=== PATIENT | female | born 1950 | race Caucasian/White ===

== ENCOUNTER 2017-04-03 12:18 | Inpatient (IN) | payer MEDICARE, BC ==
[~2017-04-03] VITALS: Ht 142.2 cm; Wt 110.0 kg
[~2017-04-03 12:18] MED LIST: ASPI-1265 PO; BUS15T PO; COU1T PO; DOCU50LI24 PO; DULR RC; FEBU40TA PO; FERR1TAB9 PO; IBUP-1984 PO; LACT1CAP57 PO; LEVO500P5 IV; MAG355OR18 PO; MAGN400O6 PO; META800T87 PO; MIDO2.5T14 PO; OMEP20CA4 PO; TRAM50TA2 PO; VANC1VIA21 IV; VITC500T PO; ZOC40T PO; [UNRECOGNIZED DRUG - CODE] IV
[2017-04-03 13:07] LABS: BASOPHILS % (AUTO) 0.3 % (0-1); EOSINOPHILS # (AUTO) 0.1 X10'3 (0-0.9); EOSINOPHILS % (AUTO) 0.9 % (0-6); HEMATOCRIT 42.3 % (35.0-45.0); HEMOGLOBIN 13.7 g/dl (12.0-16.0); LYMPHOCYTES # (AUTO) 1.8 X10'3 (1.1-4.8); LYMPHOCYTES % (AUTO) 21.8 % (21-51); MEAN CORPUSCULAR HEMOGLOBIN 26.6 PG (27.0-31.0); MEAN CORPUSCULAR HGB CONC 32.4 % (33.0-36.5); MEAN PLATELET VOLUME 9.9 FL (7.4-10.4); MONOCYTES # (AUTO) 0.6 X10'3 (0-0.9); NEUTROPHILS # (AUTO) 5.9 X10'3 (1.8-7.7); PLATELET COUNT 189 X10'3 (140-440); RED BLOOD COUNT 5.16 X10'6 (4.20-5.60); RED CELL DISTRIBUTION WIDTH 15.5 % (11.5-14.5); WHITE BLOOD COUNT 8.4 X10'3 (4.5-11.0)
[2017-04-03 13:16] LABS: INR 2.1 INR; PROTHROMBIN TIME 20.9 SECONDS (9.0-12.0)
[2017-04-03 13:23] LABS: ALANINE AMINOTRANSFERASE 16 U/L (12-78); ALBUMIN 3.5 G/DL (3.4-5.0); ALBUMIN/GLOBULIN RATIO 0.8 (1.1-1.5); ALKALINE PHOSPHATASE 83 IU/L (46-116); ANION GAP 8 (8-16); ASPARTATE AMINO TRANSFERASE 23 U/L (10-37); BILIRUBIN,TOTAL 0.6 MG/DL (0.1-1.0); BLOOD UREA NITROGEN 19 MG/DL (7-18); BUN/CREATININE RATIO 22.6 (6.6-38.0); CALCIUM 9.1 MG/DL (8.5-10.1); CHLORIDE 106 MMOL/L (99-107); CREATININE 0.84 MG/DL (0.40-0.90); GLUCOSE 106 MG/DL (70-104); POTASSIUM 3.8 MMOL/L (3.5-5.1); SODIUM 144 MMOL/L (135-145); TOTAL CARBON DIOXIDE 30.4 MMOL/L (24-32); TOTAL PROTEIN 7.9 G/DL (6.4-8.2); eGFR 68 ML/MIN
[2017-04-03 13:25] LABS: TROPONIN I < 0.04 NG/ML (0.0-0.05)
[2017-04-03] MEDS ORDERED: HYDROcodone/acetaminophen 5mg/325mg tablet PO ONE (13:35)
[2017-04-03 13:47] LABS: CLARITY,URINE Clear (Clear); COLOR,URINE Yellow (Yellow); GLUCOSE, URINE Negative (Neg); KETONES,URINE Negative (Neg); LEUKOCYTE ESTERASE ,URINE Negative (Neg); NITRITES, URINE Negative (Neg); OCCULT BLOOD,URINE Trace (Neg); PH,URINE 5.5 (4.8-8.0); PROTEIN,URINE 300 mg/dl (Neg)
[2017-04-03 13:55] LABS: UA COLLECTION TYPE STRAIGHT CATH
[2017-04-03 13:57] LABS: BACTERIA,URINE FEW /HPF (Neg); MUCUS STRANDS FEW /LPF (Neg); RBC,URINE NONE SEEN /HPF (0-2); SQUAMOUS EPITHELIAL CELL,UR FEW /LPF (FEW); WBC,URINE NONE SEEN /HPF (0-4)
[2017-04-03] MEDS ORDERED: mag hydrox/Alum hydrox/simeth 30ml oral suspension PO PRN ×2 (14:05→14:10)
[2017-04-03] MEDS ORDERED: docusate sodium 100mg/10ml UD cup PO PRN (14:05)
[2017-04-03] MEDS ORDERED: ibuprofen tablet 400 MG TABLET PO PRN (14:05)
[2017-04-03] MEDS ORDERED: cyclobenzaprine 10mg tablet PO PRN (14:05)
[2017-04-03] MEDS ORDERED: magnesium hydroxide 30ml (MOM) UD suspension PO PRN (14:05)
[2017-04-03] MEDS ORDERED: bisacodyl 10mg suppository rectal RC PRN ×2 (14:05→14:10)
[2017-04-03] MEDS ORDERED: potassium Cl 20 mEq SR tablet PO PRN ×2 (14:10)
[2017-04-03] MEDS ORDERED: acetaminophen 325mg tablet PO PRN ×2 (14:10)
[2017-04-03] MEDS ORDERED: magnesium 2GM in 50ml NS 50 ML IV PRN (14:10)
[2017-04-03] MEDS ORDERED: ondansetron/PF 4mg/2ml inj IV PRN (14:10)
[2017-04-03] MEDS ORDERED: magnesium Cl slow-release 64mg tablet PO PRN (14:10)
[2017-04-03] MEDS ORDERED: potassium Cl 40MEQ/NS 500ml 500 ML IV PRN ×2 (14:10)
[2017-04-03] MEDS ORDERED: magnesium 4gm in 100ml NS 100 ML IV PRN (14:10)
[2017-04-03 15:00] VITALS: BP 138/82
[2017-04-03] MEDS: midodrine 5mg tablet PO SCH ×3 (16:02→20:22)
[2017-04-03] MEDS ORDERED: METO-292 PO (17:05)
[2017-04-03] MEDS ORDERED: MAGN400C PO (17:05)
[2017-04-03] MEDS ORDERED: LEVO25TA2 PO (17:05)
[2017-04-03] MEDS ORDERED: LYR25C PO (17:05)
[2017-04-03] MEDS ORDERED: METO-539 PO (17:05)
[2017-04-03] MEDS ORDERED: CHOL400T14 PO (17:05)
[2017-04-03] MEDS ORDERED: HYDR12.5 PO (17:05)
[2017-04-03] MEDS ORDERED: AMLO2.5T2 PO (17:05)
[2017-04-03] MEDS: HYDROcodone/acetaminophen 10/325mg tab PO PRN ×2 (17:07→21:59)
[2017-04-03] MEDS ORDERED: BUSP5TAB3 PO (17:26)
[2017-04-03] MEDS: amLODIPine 5mg tablet PO SCH (17:46)
[2017-04-03 18:30] VITALS: BP 146/75
[2017-04-03] MEDS ORDERED: docusate sod 100mg capsule PO SCH (20:00)
[2017-04-03] MEDS: atorvastatin 20mg tablet PO SCH (20:14)
[2017-04-03] MEDS: ascorbic acid 500mg tablet PO SCH (20:14)
[2017-04-03] MEDS ORDERED: warfarin 1mg tablet PO SCH (21:00)
[2017-04-03] MEDS ORDERED: temazepam 15mg capsule PO PRN (21:00)
[2017-04-03 22:00] VITALS: BP 146/76
[2017-04-04] MEDS: traMADol 50MG tablet PO PRN (00:24)
[2017-04-04] MEDS: cyclobenzaprine 10mg tablet PO PRN ×2 (00:24→10:07)
[2017-04-04 02:00] VITALS: BP 120/80
[2017-04-04] MEDS: HYDROcodone/acetaminophen 10/325mg tab PO PRN (06:02)
[2017-04-04 06:37] LABS: BASOPHILS % (AUTO) 0.3 % (0-1); EOSINOPHILS # (AUTO) 0.1 X10'3 (0-0.9); EOSINOPHILS % (AUTO) 1.6 % (0-6); HEMOGLOBIN 13.1 g/dl (12.0-16.0); LYMPHOCYTES # (AUTO) 1.4 X10'3 (1.1-4.8); LYMPHOCYTES % (AUTO) 16.5 % (21-51); MEAN CORPUSCULAR HEMOGLOBIN 26.6 PG (27.0-31.0); MEAN CORPUSCULAR VOLUME 83.1 FL (78-98); MEAN PLATELET VOLUME 10.2 FL (7.4-10.4); MONOCYTES # (AUTO) 0.8 X10'3 (0-0.9); MONOCYTES % (AUTO) 9.1 % (2-12); NEUTROPHILS # (AUTO) 6.3 X10'3 (1.8-7.7); NEUTROPHILS % (AUTO) 72.5 % (42-75); PLATELET COUNT 196 X10'3 (140-440); RED BLOOD COUNT 4.94 X10'6 (4.20-5.60); RED CELL DISTRIBUTION WIDTH 15.7 % (11.5-14.5); WHITE BLOOD COUNT 8.6 X10'3 (4.5-11.0)
[2017-04-04 06:47] LABS: INR 1.9 INR; PROTHROMBIN TIME 18.9 SECONDS (9.0-12.0)
[2017-04-04 06:51] LABS: ALBUMIN 3.2 G/DL (3.4-5.0); ANION GAP 3 (8-16); BLOOD UREA NITROGEN 26 MG/DL (7-18); BUN/CREATININE RATIO 24.5 (6.6-38.0); CALCIUM 9.1 MG/DL (8.5-10.1); CHLORIDE 108 MMOL/L (99-107); CREATININE 1.06 MG/DL (0.40-0.90); GLUCOSE 102 MG/DL (70-104); MAGNESIUM 1.7 MG/DL (1.5-2.4); POTASSIUM 4.3 MMOL/L (3.5-5.1); SODIUM 145 MMOL/L (135-145); TOTAL CARBON DIOXIDE 34.2 MMOL/L (24-32); eGFR 52 ML/MIN
[2017-04-04] MEDS ORDERED: lactobacillus rhamnosus 10,000 MMU CELLS/CAPSULE PO SCH (08:00)
[2017-04-04] MEDS: aspirin 81mg tab.chew PO SCH (08:00)
[2017-04-04] MEDS: midodrine 5mg tablet PO SCH ×2 (08:00→13:00)
[2017-04-04] MEDS ORDERED: IRON,CARBONYL (45 MG ELEMENTAL IRON) SR.TABLET PO SCH (08:00)
[2017-04-04] MEDS: K and/or MAG REPLACEMENT MC SCH (08:00)
[2017-04-04] MEDS: FEBUXOSTAT PO SCH (08:00)
[2017-04-04] MEDS: docusate sod 100mg capsule PO SCH (08:00)
[2017-04-04] MEDS: amLODIPine 5mg tablet PO SCH (10:05)
[2017-04-04] MEDS: busPIRone 15mg tablet PO SCH (10:05)
[2017-04-04] MEDS: pantoprazole 40mg Tablet.DR PO SCH (10:06)
[2017-04-04] MEDS: ascorbic acid 500mg tablet PO SCH ×2 (10:06→20:38)
[2017-04-04 18:00] VITALS: BP 123/65
[2017-04-04] MEDS: enoxaparin 100mg/ml syringe SUBCUT SCH (20:38)
[2017-04-04] MEDS: atorvastatin 20mg tablet PO SCH (20:38)
[2017-04-04] MEDS: pregabalin 25mg capsule PO SCH (20:38)
[2017-04-04] MEDS ORDERED: warfarin 2.5mg tablet PO ONE (21:00)
[2017-04-04 21:16] LABS: CLARITY,URINE Clear (Clear); COLOR,URINE Yellow (Yellow); GLUCOSE, URINE Negative (Neg); KETONES,URINE Trace mg/dl (Neg); LEUKOCYTE ESTERASE ,URINE Trace (Neg); NITRITES, URINE Negative (Neg); OCCULT BLOOD,URINE Moderate (Neg); PROTEIN,URINE 100 mg/dl (Neg); UROBILINOGEN,URINE 0.2 E.U/dL (0.2-1.0)
[2017-04-04 21:23] LABS: UA COLLECTION TYPE VOIDED
[2017-04-04 22:00] VITALS: BP 108/55
[2017-04-04 22:03] LABS: RBC,URINE 20-50 /HPF (0-2); WBC,URINE 0-4 /HPF (0-4)
[2017-04-04 22:04] LABS: BACTERIA,URINE 1+ /HPF (Neg); HYALINE CASTS 0-3 /LPF (NEGATIVE); MUCUS STRANDS FEW /LPF (Neg); SQUAMOUS EPITHELIAL CELL,UR FEW /LPF (FEW)
[2017-04-05 06:00] VITALS: BP 136/61
[2017-04-05 06:37] LABS: BASOPHILS % (AUTO) 0.4 % (0-1); EOSINOPHILS # (AUTO) 0.1 X10'3 (0-0.9); EOSINOPHILS % (AUTO) 0.8 % (0-6); HEMATOCRIT 36.7 % (35.0-45.0); HEMOGLOBIN 11.8 g/dl (12.0-16.0); LYMPHOCYTES # (AUTO) 1.6 X10'3 (1.1-4.8); MEAN CORPUSCULAR HEMOGLOBIN 26.7 PG (27.0-31.0); MEAN CORPUSCULAR HGB CONC 32.2 % (33.0-36.5); MEAN PLATELET VOLUME 9.9 FL (7.4-10.4); MONOCYTES % (AUTO) 10.9 % (2-12); NEUTROPHILS # (AUTO) 6.6 X10'3 (1.8-7.7); NEUTROPHILS % (AUTO) 70.9 % (42-75); PLATELET COUNT 158 X10'3 (140-440); RED BLOOD COUNT 4.42 X10'6 (4.20-5.60); RED CELL DISTRIBUTION WIDTH 15.4 % (11.5-14.5); WHITE BLOOD COUNT 9.3 X10'3 (4.5-11.0)
[2017-04-05 06:46] LABS: INR 1.6 INR; PROTHROMBIN TIME 16.7 SECONDS (9.0-12.0)
[2017-04-05 06:51] LABS: ALBUMIN 2.7 G/DL (3.4-5.0); ANION GAP 4 (8-16); BLOOD UREA NITROGEN 29 MG/DL (7-18); BUN/CREATININE RATIO 29.6 (6.6-38.0); CALCIUM 8.9 MG/DL (8.5-10.1); CHLORIDE 110 MMOL/L (99-107); CREATININE 0.98 MG/DL (0.40-0.90); GLUCOSE 85 MG/DL (70-104); MAGNESIUM 1.8 MG/DL (1.5-2.4); POTASSIUM 4.3 MMOL/L (3.5-5.1); SODIUM 147 MMOL/L (135-145); TOTAL CARBON DIOXIDE 33.3 MMOL/L (24-32); eGFR 57 ML/MIN
[2017-04-05] MEDS: FEBUXOSTAT PO SCH (08:00)
[2017-04-05] MEDS: K and/or MAG REPLACEMENT MC SCH (08:00)
[2017-04-05] MEDS: IRON,CARBONYL (45 MG ELEMENTAL IRON) SR.TABLET PO SCH (08:11)
[2017-04-05] MEDS: pantoprazole 40mg Tablet.DR PO SCH (08:11)
[2017-04-05] MEDS: amLODIPine 5mg tablet PO SCH (08:11)
[2017-04-05] MEDS: docusate sod 100mg capsule PO SCH (08:11)
[2017-04-05] MEDS: lactobacillus rhamnosus 10,000 MMU CELLS/CAPSULE PO SCH (08:11)
[2017-04-05] MEDS: aspirin 81mg tab.chew PO SCH (08:11)
[2017-04-05] MEDS: busPIRone 15mg tablet PO SCH (08:11)
[2017-04-05] MEDS: ascorbic acid 500mg tablet PO SCH ×2 (08:12→20:30)
[2017-04-05] MEDS: enoxaparin 100mg/ml syringe SUBCUT SCH (08:12)
[2017-04-05] MEDS: HYDROcodone/acetaminophen 10/325mg tab PO PRN ×2 (08:12→20:31)
[2017-04-05 11:00] VITALS: BP 107/52
[2017-04-05] MEDS: sodium chloride 0.45% 1,000 ML IV SCH (14:30)
[2017-04-05 18:16] VITALS: BP 147/73
[2017-04-05] MEDS: pregabalin 25mg capsule PO SCH (20:28)
[2017-04-05] MEDS: atorvastatin 20mg tablet PO SCH (20:28)
[2017-04-05] MEDS ORDERED: warfarin 5mg tablet PO ONE (21:00)
[2017-04-05 22:13] VITALS: BP 139/65
[2017-04-06] MEDS: sodium chloride 0.45% 1,000 ML IV SCH ×2 (00:02→16:56)
[2017-04-06] MEDS: HYDROcodone/acetaminophen 10/325mg tab PO PRN (05:33)
[2017-04-06 05:47] LABS: BASOPHILS % (AUTO) 0.1 % (0-1); EOSINOPHILS # (AUTO) 0.1 X10'3 (0-0.9); EOSINOPHILS % (AUTO) 0.5 % (0-6); HEMATOCRIT 37.5 % (35.0-45.0); HEMOGLOBIN 11.9 g/dl (12.0-16.0); LYMPHOCYTES % (AUTO) 18.8 % (21-51); MEAN CORPUSCULAR HEMOGLOBIN 26.4 PG (27.0-31.0); MEAN CORPUSCULAR HGB CONC 31.8 % (33.0-36.5); MEAN CORPUSCULAR VOLUME 83.2 FL (78-98); MEAN PLATELET VOLUME 10.2 FL (7.4-10.4); MONOCYTES # (AUTO) 1.1 X10'3 (0-0.9); MONOCYTES % (AUTO) 10.4 % (2-12); NEUTROPHILS # (AUTO) 7.6 X10'3 (1.8-7.7); NEUTROPHILS % (AUTO) 70.2 % (42-75); PLATELET COUNT 149 X10'3 (140-440); WHITE BLOOD COUNT 10.8 X10'3 (4.5-11.0)
[2017-04-06 05:51] LABS: INR 1.7 INR; PROTHROMBIN TIME 17.4 SECONDS (9.0-12.0)
[2017-04-06 06:00] VITALS: BP 128/60
[2017-04-06 06:01] LABS: ALBUMIN 2.4 G/DL (3.4-5.0); ANION GAP 3 (8-16); BLOOD UREA NITROGEN 25 MG/DL (7-18); BUN/CREATININE RATIO 28.7 (6.6-38.0); CALCIUM 8.6 MG/DL (8.5-10.1); CHLORIDE 108 MMOL/L (99-107); CREATININE 0.87 MG/DL (0.40-0.90); GLUCOSE 103 MG/DL (70-104); MAGNESIUM 1.6 MG/DL (1.5-2.4); POTASSIUM 4.3 MMOL/L (3.5-5.1); SODIUM 145 MMOL/L (135-145); TOTAL CARBON DIOXIDE 33.7 MMOL/L (24-32); eGFR 65 ML/MIN
[2017-04-06] MEDS: K and/or MAG REPLACEMENT MC SCH (08:00)
[2017-04-06] MEDS: FEBUXOSTAT PO SCH (08:00)
[2017-04-06] MEDS: IRON,CARBONYL (45 MG ELEMENTAL IRON) SR.TABLET PO SCH (08:55)
[2017-04-06] MEDS: busPIRone 15mg tablet PO SCH (08:56)
[2017-04-06] MEDS: docusate sod 100mg capsule PO SCH (08:56)
[2017-04-06] MEDS: aspirin 81mg tab.chew PO SCH (08:56)
[2017-04-06] MEDS: amLODIPine 5mg tablet PO SCH (08:56)
[2017-04-06] MEDS: lactobacillus rhamnosus 10,000 MMU CELLS/CAPSULE PO SCH (08:56)
[2017-04-06] MEDS: pantoprazole 40mg Tablet.DR PO SCH (08:56)
[2017-04-06] MEDS: ascorbic acid 500mg tablet PO SCH ×2 (08:56→20:31)
[2017-04-06 11:00] VITALS: BP 104/55
[2017-04-06 18:49] VITALS: BP 124/57
[2017-04-06] MEDS: pregabalin 25mg capsule PO SCH (20:31)
[2017-04-06] MEDS: atorvastatin 20mg tablet PO SCH (20:31)
[2017-04-06] MEDS ORDERED: warfarin 2.5mg tablet PO ONE (21:00)
[2017-04-06 22:15] VITALS: BP 145/74
[2017-04-07] MEDS: HYDROcodone/acetaminophen 10/325mg tab PO PRN ×3 (05:46→20:48)
[2017-04-07] MEDS: sodium chloride 0.45% 1,000 ML IV SCH ×2 (05:47→20:53)
[2017-04-07 06:00] VITALS: BP 129/71
[2017-04-07 06:57] LABS: BASOPHILS % (AUTO) 0.3 % (0-1); EOSINOPHILS % (AUTO) 0.5 % (0-6); HEMOGLOBIN 10.9 g/dl (12.0-16.0); LYMPHOCYTES # (AUTO) 1.5 X10'3 (1.1-4.8); LYMPHOCYTES % (AUTO) 18.7 % (21-51); MEAN CORPUSCULAR HEMOGLOBIN 26.5 PG (27.0-31.0); MEAN CORPUSCULAR HGB CONC 32.1 % (33.0-36.5); MEAN CORPUSCULAR VOLUME 82.6 FL (78-98); MEAN PLATELET VOLUME 10.3 FL (7.4-10.4); MONOCYTES # (AUTO) 0.9 X10'3 (0-0.9); MONOCYTES % (AUTO) 11.1 % (2-12); NEUTROPHILS # (AUTO) 5.7 X10'3 (1.8-7.7); NEUTROPHILS % (AUTO) 69.4 % (42-75); PLATELET COUNT 153 X10'3 (140-440); RED BLOOD COUNT 4.11 X10'6 (4.20-5.60); RED CELL DISTRIBUTION WIDTH 15.3 % (11.5-14.5); WHITE BLOOD COUNT 8.3 X10'3 (4.5-11.0)
[2017-04-07 07:14] LABS: INR 1.9 INR; PROTHROMBIN TIME 19.6 SECONDS (9.0-12.0)
[2017-04-07 07:22] LABS: ALBUMIN 2.3 G/DL (3.4-5.0); ANION GAP 1 (8-16); BLOOD UREA NITROGEN 25 MG/DL (7-18); BUN/CREATININE RATIO 28.7 (6.6-38.0); CALCIUM 8.4 MG/DL (8.5-10.1); CHLORIDE 110 MMOL/L (99-107); CREATININE 0.87 MG/DL (0.40-0.90); GLUCOSE 106 MG/DL (70-104); MAGNESIUM 1.6 MG/DL (1.5-2.4); POTASSIUM 4.1 MMOL/L (3.5-5.1); SODIUM 146 MMOL/L (135-145); TOTAL CARBON DIOXIDE 34.7 MMOL/L (24-32); eGFR 65 ML/MIN
[2017-04-07] MEDS: K and/or MAG REPLACEMENT MC SCH (08:00)
[2017-04-07] MEDS: FEBUXOSTAT PO SCH (08:00)
[2017-04-07] MEDS: ascorbic acid 500mg tablet PO SCH ×2 (08:19→20:50)
[2017-04-07] MEDS: IRON,CARBONYL (45 MG ELEMENTAL IRON) SR.TABLET PO SCH (08:19)
[2017-04-07] MEDS: aspirin 81mg tab.chew PO SCH (08:20)
[2017-04-07] MEDS: docusate sod 100mg capsule PO SCH (08:20)
[2017-04-07] MEDS: lactobacillus rhamnosus 10,000 MMU CELLS/CAPSULE PO SCH (08:20)
[2017-04-07] MEDS: pantoprazole 40mg Tablet.DR PO SCH (08:21)
[2017-04-07] MEDS: amLODIPine 5mg tablet PO SCH (08:21)
[2017-04-07] MEDS: busPIRone 15mg tablet PO SCH (08:21)
[2017-04-07 10:00] VITALS: BP 110/56
[2017-04-07 18:00] VITALS: BP 131/70
[2017-04-07] MEDS: pregabalin 25mg capsule PO SCH (20:48)
[2017-04-07] MEDS: atorvastatin 20mg tablet PO SCH (20:48)
[2017-04-07] MEDS ORDERED: warfarin 3mg tablet PO ONE (21:00)
[2017-04-07 22:00] VITALS: BP 137/65
[2017-04-08 06:00] VITALS: BP 138/68
[2017-04-08] MEDS ORDERED: phytonadione inj. 10 MG in normal saline 100ml IV soln 99 ML IV ONE (06:25)
[2017-04-08 06:44] LABS: BASOPHILS % (AUTO) 0.4 % (0-1); EOSINOPHILS # (AUTO) 0.1 X10'3 (0-0.9); EOSINOPHILS % (AUTO) 0.8 % (0-6); HEMATOCRIT 34.2 % (35.0-45.0); HEMOGLOBIN 10.7 g/dl (12.0-16.0); LYMPHOCYTES # (AUTO) 1.7 X10'3 (1.1-4.8); LYMPHOCYTES % (AUTO) 23.1 % (21-51); MEAN CORPUSCULAR HEMOGLOBIN 26.2 PG (27.0-31.0); MEAN CORPUSCULAR HGB CONC 31.3 % (33.0-36.5); MEAN CORPUSCULAR VOLUME 83.6 FL (78-98); MONOCYTES # (AUTO) 0.8 X10'3 (0-0.9); MONOCYTES % (AUTO) 10.1 % (2-12); NEUTROPHILS # (AUTO) 4.9 X10'3 (1.8-7.7); NEUTROPHILS % (AUTO) 65.6 % (42-75); PLATELET COUNT 168 X10'3 (140-440); RED BLOOD COUNT 4.09 X10'6 (4.20-5.60); RED CELL DISTRIBUTION WIDTH 15.4 % (11.5-14.5); WHITE BLOOD COUNT 7.5 X10'3 (4.5-11.0)
[2017-04-08 06:48] LABS: INR 2.1 INR; PROTHROMBIN TIME 21.1 SECONDS (9.0-12.0)
[2017-04-08 06:53] LABS: ALBUMIN 2.3 G/DL (3.4-5.0); ANION GAP 3 (8-16); BLOOD UREA NITROGEN 24 MG/DL (7-18); BUN/CREATININE RATIO 28.9 (6.6-38.0); CALCIUM 8.6 MG/DL (8.5-10.1); CHLORIDE 110 MMOL/L (99-107); CREATININE 0.83 MG/DL (0.40-0.90); GLUCOSE 102 MG/DL (70-104); MAGNESIUM 1.6 MG/DL (1.5-2.4); POTASSIUM 4.1 MMOL/L (3.5-5.1); SODIUM 146 MMOL/L (135-145); TOTAL CARBON DIOXIDE 32.7 MMOL/L (24-32); eGFR 69 ML/MIN
[2017-04-08] MEDS: K and/or MAG REPLACEMENT MC SCH (07:25)
[2017-04-08] MEDS: FEBUXOSTAT PO SCH (07:47)
[2017-04-08] MEDS: IRON,CARBONYL (45 MG ELEMENTAL IRON) SR.TABLET PO SCH (07:55)
[2017-04-08] MEDS: lactobacillus rhamnosus 10,000 MMU CELLS/CAPSULE PO SCH (07:55)
[2017-04-08] MEDS: docusate sod 100mg capsule PO SCH (07:55)
[2017-04-08] MEDS: ascorbic acid 500mg tablet PO SCH ×2 (07:56→21:08)
[2017-04-08] MEDS: amLODIPine 5mg tablet PO SCH (07:56)
[2017-04-08] MEDS: pantoprazole 40mg Tablet.DR PO SCH (07:56)
[2017-04-08] MEDS: sodium chloride 0.45% 1,000 ML IV SCH ×2 (07:57→21:50)
[2017-04-08] MEDS ORDERED: enoxaparin 30mg/0.3ml syringe SUBCUT SCH (08:00)
[2017-04-08] MEDS: busPIRone 15mg tablet PO SCH (08:01)
[2017-04-08] MEDS ORDERED: heparin 10,000 units/1 ML INJ IV ONE (08:05)
[2017-04-08 10:00] VITALS: BP 121/66
[2017-04-08] MEDS: HYDROcodone/acetaminophen 10/325mg tab PO PRN ×2 (10:23→16:22)
[2017-04-08 16:45] LABS: PARTIAL THROMBOPLASTIN TIME 53 SECONDS (22-32)
[2017-04-08 19:00] VITALS: BP 131/65
[2017-04-08] MEDS: pregabalin 25mg capsule PO SCH (21:08)
[2017-04-08] MEDS: atorvastatin 20mg tablet PO SCH (21:08)
[2017-04-08] MEDS: HYDROcodone/acetaminophen 5mg/325mg tablet PO PRN (22:21)
[2017-04-08 23:00] VITALS: BP 126/60
[2017-04-08 23:55] LABS: ABG BASE EXCESS 7.2 mmol/L (-2.0-3.0); ABG HCO3 32.8 mmol/L (22.0-26.0); ABG OXYGEN SATURATION 84.9 % (95-98); ABG PCO2 (T) 51.6 mmHg (32.0-45.0); ABG PH (T) 7.421 (7.350-7.450); FCOHb 0.6 % (0.5-1.5); FMetHb 0.3 % (0.3-1.12); FO2Hb 84.1 % (94-100); RESPIRATORY RATE (OBSERVED) 16 b/min; TOTAL HEMOGLOBIN 11.2 G/dl (12.0-16.0)
[2017-04-09 04:57] LABS: INR 2.3 INR; PROTHROMBIN TIME 23.6 SECONDS (9.0-12.0)
[2017-04-09 05:00] VITALS: BP 135/66
[2017-04-09] MEDS: FEBUXOSTAT PO SCH (08:00)
[2017-04-09] MEDS: K and/or MAG REPLACEMENT MC SCH (08:00)
[2017-04-09] MEDS: lactobacillus rhamnosus 10,000 MMU CELLS/CAPSULE PO SCH (08:10)
[2017-04-09] MEDS: busPIRone 15mg tablet PO SCH (08:10)
[2017-04-09] MEDS: docusate sod 100mg capsule PO SCH (08:10)
[2017-04-09] MEDS: IRON,CARBONYL (45 MG ELEMENTAL IRON) SR.TABLET PO SCH (08:10)
[2017-04-09] MEDS: amLODIPine 5mg tablet PO SCH (08:11)
[2017-04-09] MEDS: ascorbic acid 500mg tablet PO SCH ×2 (08:11→20:36)
[2017-04-09] MEDS: pantoprazole 40mg Tablet.DR PO SCH (08:11)
[2017-04-09] MEDS: sodium chloride 0.45% 1,000 ML IV SCH (08:16)
[2017-04-09] MEDS: lisinopril 5mg tablet PO SCH (09:18)
[2017-04-09] MEDS: HYDROcodone/acetaminophen 10/325mg tab PO PRN ×4 (09:18→23:06)
[2017-04-09] MEDS ORDERED: dextrose 5%-water 1,000 ML IV SCH (09:55)
[2017-04-09 10:00] VITALS: BP 107/52
[2017-04-09] MEDS: furosemide 40mg/4ml inj IV SCH ×2 (11:09→20:35)
[2017-04-09] MEDS: levoFLOXACIN-Levaquin 500mg/D5 100 ML IV SCH (11:11)
[2017-04-09 18:00] VITALS: BP_SYST 112; BP_DIAS 52; BP_DIAS 66
[2017-04-09] MEDS: pregabalin 25mg capsule PO SCH (20:36)
[2017-04-09] MEDS: atorvastatin 20mg tablet PO SCH (20:36)
[2017-04-09 22:00] VITALS: BP 106/58
[2017-04-09 22:49] LABS: INR 2.1 INR; PROTHROMBIN TIME 21.6 SECONDS (9.0-12.0)
[2017-04-10] MEDS: HYDROcodone/acetaminophen 5mg/325mg tablet PO PRN (01:06)
[2017-04-10] MEDS: cyclobenzaprine 10mg tablet PO PRN ×2 (02:45→23:41)
[2017-04-10 04:42] LABS: INR 2.1 INR; PROTHROMBIN TIME 21.2 SECONDS (9.0-12.0)
[2017-04-10 05:00] VITALS: BP 85/46
[2017-04-10] MEDS: furosemide 40mg/4ml inj IV SCH ×3 (08:00→21:01)
[2017-04-10 10:00] VITALS: BP 88/48
[2017-04-10] MEDS: FEBUXOSTAT PO SCH (10:16)
[2017-04-10] MEDS: K and/or MAG REPLACEMENT MC SCH (10:19)
[2017-04-10] MEDS: LACTOBACILLUS RHAMNOSUS GG 15 billion unit sprinkle caps PO SCH (10:19)
[2017-04-10] MEDS: docusate sod 100mg capsule PO SCH (10:19)
[2017-04-10] MEDS: amLODIPine 5mg tablet PO SCH (10:20)
[2017-04-10] MEDS: lisinopril 5mg tablet PO SCH (10:24)
[2017-04-10] MEDS: busPIRone 15mg tablet PO SCH (10:24)
[2017-04-10] MEDS: IRON,CARBONYL (45 MG ELEMENTAL IRON) SR.TABLET PO SCH (10:24)
[2017-04-10] MEDS: pantoprazole 40mg Tablet.DR PO SCH (10:24)
[2017-04-10] MEDS: levoFLOXACIN-Levaquin 500mg/D5 100 ML IV SCH (10:24)
[2017-04-10] MEDS: ascorbic acid 500mg tablet PO SCH ×2 (10:24→21:02)
[2017-04-10 11:47] LABS: PARTIAL THROMBOPLASTIN TIME 51 SECONDS (22-32)
[2017-04-10] MEDS: HYDROcodone/acetaminophen 10/325mg tab PO PRN ×2 (13:50→22:39)
[2017-04-10] MEDS ORDERED: clindamycin 600mg/D5W 50ml 50 ML IV ONE (15:00)
[2017-04-10 16:56] LABS: PARTIAL THROMBOPLASTIN TIME 46 SECONDS (22-32)
[2017-04-10] MEDS ORDERED: potassium Cl 40MEQ/NS 500ml 500 ML IV PRN ×2 (17:20)
[2017-04-10] MEDS ORDERED: magnesium 2GM in 50ml NS 50 ML IV PRN (17:20)
[2017-04-10] MEDS ORDERED: magnesium Cl slow-release 64mg tablet PO PRN (17:20)
[2017-04-10] MEDS ORDERED: potassium Cl 20 mEq SR tablet PO PRN ×2 (17:20)
[2017-04-10] MEDS ORDERED: magnesium 4gm in 100ml NS 100 ML IV PRN (17:20)
[2017-04-10 18:00] VITALS: BP 103/59
[2017-04-10 20:55] VITALS: BP 127/65
[2017-04-10] MEDS: atorvastatin 20mg tablet PO SCH (21:01)
[2017-04-10] MEDS: pregabalin 25mg capsule PO SCH (21:01)
[2017-04-10 21:04] LABS: PARTIAL THROMBOPLASTIN TIME 51 SECONDS (22-32)
[2017-04-10] MEDS: magnesium hydroxide 30ml (MOM) UD suspension PO PRN (21:12)
[2017-04-10 22:00] VITALS: BP 117/59
[2017-04-11] MEDS: traMADol 50MG tablet PO PRN (01:41)
[2017-04-11 04:14] LABS: HEMATOCRIT 33.2 % (35.0-45.0); HEMOGLOBIN 10.7 g/dl (12.0-16.0); MEAN CORPUSCULAR HEMOGLOBIN 26.8 PG (27.0-31.0); MEAN CORPUSCULAR HGB CONC 32.3 % (33.0-36.5); MEAN CORPUSCULAR VOLUME 82.8 FL (78-98); MEAN PLATELET VOLUME 9.7 FL (7.4-10.4); PLATELET COUNT 209 X10'3 (140-440); RED BLOOD COUNT 4.01 X10'6 (4.20-5.60); RED CELL DISTRIBUTION WIDTH 15.2 % (11.5-14.5); WHITE BLOOD COUNT 7.5 X10'3 (4.5-11.0)
[2017-04-11 04:27] LABS: INR 1.8 INR; PARTIAL THROMBOPLASTIN TIME 48 SECONDS (22-32); PROTHROMBIN TIME 18.1 SECONDS (9.0-12.0)
[2017-04-11 04:45] LABS: ALBUMIN 2.4 G/DL (3.4-5.0); ANION GAP 2 (8-16); BLOOD UREA NITROGEN 25 MG/DL (7-18); BUN/CREATININE RATIO 23.6 (6.6-38.0); CHLORIDE 106 MMOL/L (99-107); CREATININE 1.06 MG/DL (0.40-0.90); GLUCOSE 120 MG/DL (70-104); MAGNESIUM 1.7 MG/DL (1.5-2.4); POTASSIUM 3.7 MMOL/L (3.5-5.1); SODIUM 146 MMOL/L (135-145); TOTAL CARBON DIOXIDE 37.6 MMOL/L (24-32); eGFR 52 ML/MIN
[2017-04-11 05:00] VITALS: BP 92/53
[2017-04-11] MEDS: amLODIPine 5mg tablet PO SCH (08:00)
[2017-04-11] MEDS: lisinopril 5mg tablet PO SCH (08:00)
[2017-04-11] MEDS: furosemide 40mg/4ml inj IV SCH ×2 (08:00→20:08)
[2017-04-11] MEDS: FEBUXOSTAT PO SCH (08:00)
[2017-04-11] MEDS: K and/or MAG REPLACEMENT MC SCH (08:00)
[2017-04-11] MEDS: LACTOBACILLUS RHAMNOSUS GG 15 billion unit sprinkle caps PO SCH (08:57)
[2017-04-11] MEDS: ascorbic acid 500mg tablet PO SCH ×2 (08:57→20:09)
[2017-04-11] MEDS: pantoprazole 40mg Tablet.DR PO SCH (08:57)
[2017-04-11] MEDS: docusate sod 100mg capsule PO SCH (08:57)
[2017-04-11] MEDS: IRON,CARBONYL (45 MG ELEMENTAL IRON) SR.TABLET PO SCH (08:57)
[2017-04-11] MEDS: busPIRone 15mg tablet PO SCH (08:57)
[2017-04-11] MEDS: HYDROcodone/acetaminophen 10/325mg tab PO PRN ×2 (08:58→22:01)
[2017-04-11 10:00] VITALS: BP 109/67
[2017-04-11 11:02] LABS: PARTIAL THROMBOPLASTIN TIME 44 SECONDS (22-32)
[2017-04-11] MEDS: heparin 10,000 units/1 ML INJ IV PRN (11:16)
[2017-04-11] MEDS: levoFLOXACIN 500mg tablet PO SCH (14:18)
[2017-04-11 16:59] LABS: PARTIAL THROMBOPLASTIN TIME 66 SECONDS (22-32)
[2017-04-11 18:00] VITALS: BP_SYST 128; BP_SYST 80; BP_DIAS 49; BP_DIAS 57
[2017-04-11] MEDS: pregabalin 25mg capsule PO SCH (20:09)
[2017-04-11] MEDS: atorvastatin 20mg tablet PO SCH (20:09)
[2017-04-11 20:30] VITALS: BP 125/67
[2017-04-11 22:00] VITALS: BP 114/35
[2017-04-11 22:59] LABS: PARTIAL THROMBOPLASTIN TIME 53 SECONDS (22-32)
[2017-04-12] MEDS: traMADol 50MG tablet PO PRN (01:51)
[2017-04-12 04:51] LABS: ALBUMIN 2.5 G/DL (3.4-5.0); ANION GAP -1 (8-16); BLOOD UREA NITROGEN 27 MG/DL (7-18); BUN/CREATININE RATIO 26.5 (6.6-38.0); CHLORIDE 104 MMOL/L (99-107); CREATININE 1.02 MG/DL (0.40-0.90); GLUCOSE 98 MG/DL (70-104); MAGNESIUM 1.7 MG/DL (1.5-2.4); SODIUM 142 MMOL/L (135-145); TOTAL CARBON DIOXIDE 38.6 MMOL/L (24-32); eGFR 54 ML/MIN
[2017-04-12 05:00] VITALS: BP 122/63
[2017-04-12 05:16] LABS: HEMATOCRIT 33.5 % (35.0-45.0); HEMOGLOBIN 10.9 g/dl (12.0-16.0); MEAN CORPUSCULAR HEMOGLOBIN 26.6 PG (27.0-31.0); MEAN CORPUSCULAR HGB CONC 32.4 % (33.0-36.5); MEAN PLATELET VOLUME 9.3 FL (7.4-10.4); PLATELET COUNT 204 X10'3 (140-440); RED BLOOD COUNT 4.09 X10'6 (4.20-5.60); RED CELL DISTRIBUTION WIDTH 14.9 % (11.5-14.5); WHITE BLOOD COUNT 7.4 X10'3 (4.5-11.0)
[2017-04-12 05:31] LABS: INR 1.5 INR; PARTIAL THROMBOPLASTIN TIME 38 SECONDS (22-32); PROTHROMBIN TIME 15.8 SECONDS (9.0-12.0)
[2017-04-12] MEDS: lisinopril 5mg tablet PO SCH (08:00)
[2017-04-12] MEDS: K and/or MAG REPLACEMENT MC SCH (08:00)
[2017-04-12] MEDS: amLODIPine 5mg tablet PO SCH (08:00)
[2017-04-12] MEDS: FEBUXOSTAT PO SCH (08:00)
[2017-04-12] MEDS: furosemide 40mg/4ml inj IV SCH ×2 (08:38→20:33)
[2017-04-12] MEDS: LACTOBACILLUS RHAMNOSUS GG 15 billion unit sprinkle caps PO SCH (08:38)
[2017-04-12] MEDS: busPIRone 15mg tablet PO SCH (08:38)
[2017-04-12] MEDS: docusate sod 100mg capsule PO SCH (08:38)
[2017-04-12] MEDS: pantoprazole 40mg Tablet.DR PO SCH (08:39)
[2017-04-12] MEDS: IRON,CARBONYL (45 MG ELEMENTAL IRON) SR.TABLET PO SCH (08:39)
[2017-04-12] MEDS: ascorbic acid 500mg tablet PO SCH ×2 (08:39→20:33)
[2017-04-12] MEDS: magnesium hydroxide 30ml (MOM) UD suspension PO PRN (08:39)
[2017-04-12 10:00] VITALS: BP 125/63
[2017-04-12 10:47] LABS: PARTIAL THROMBOPLASTIN TIME 43 SECONDS (22-32)
[2017-04-12] MEDS: heparin 10,000 units/1 ML INJ IV PRN (11:36)
[2017-04-12] MEDS: levoFLOXACIN 500mg tablet PO SCH (11:41)
[2017-04-12] MEDS: HYDROcodone/acetaminophen 10/325mg tab PO PRN ×2 (11:41→22:30)
[2017-04-12 17:09] LABS: PARTIAL THROMBOPLASTIN TIME 67 SECONDS (22-32)
[2017-04-12 18:00] VITALS: BP 116/60
[2017-04-12] MEDS: pregabalin 25mg capsule PO SCH (20:32)
[2017-04-12] MEDS: atorvastatin 20mg tablet PO SCH (20:33)
[2017-04-12 22:00] VITALS: BP 125/63
[2017-04-12 22:58] LABS: PARTIAL THROMBOPLASTIN TIME 54 SECONDS (22-32)
[2017-04-13 06:00] VITALS: BP 131/69
[2017-04-13 06:09] LABS: HEMATOCRIT 33.9 % (35.0-45.0); HEMOGLOBIN 10.9 g/dl (12.0-16.0); MEAN CORPUSCULAR HEMOGLOBIN 26.6 PG (27.0-31.0); MEAN CORPUSCULAR HGB CONC 32.1 % (33.0-36.5); MEAN CORPUSCULAR VOLUME 82.8 FL (78-98); MEAN PLATELET VOLUME 9.7 FL (7.4-10.4); PLATELET COUNT 196 X10'3 (140-440); RED BLOOD COUNT 4.09 X10'6 (4.20-5.60); RED CELL DISTRIBUTION WIDTH 15.1 % (11.5-14.5); WHITE BLOOD COUNT 6.8 X10'3 (4.5-11.0)
[2017-04-13 06:17] LABS: ALBUMIN 2.5 G/DL (3.4-5.0); ANION GAP 4 (8-16); BLOOD UREA NITROGEN 27 MG/DL (7-18); BUN/CREATININE RATIO 24.5 (6.6-38.0); CALCIUM 8.9 MG/DL (8.5-10.1); CHLORIDE 103 MMOL/L (99-107); GLUCOSE 98 MG/DL (70-104); INR 1.3 INR; PARTIAL THROMBOPLASTIN TIME 39 SECONDS (22-32); SODIUM 146 MMOL/L (135-145); TOTAL CARBON DIOXIDE 38.7 MMOL/L (24-32); eGFR 50 ML/MIN
[2017-04-13] MEDS: K and/or MAG REPLACEMENT MC SCH (07:18)
[2017-04-13] MEDS: FEBUXOSTAT PO SCH (07:19)
[2017-04-13] MEDS: ascorbic acid 500mg tablet PO SCH ×2 (07:32→21:14)
[2017-04-13] MEDS: docusate sod 100mg capsule PO SCH (07:33)
[2017-04-13] MEDS: IRON,CARBONYL (45 MG ELEMENTAL IRON) SR.TABLET PO SCH (07:33)
[2017-04-13] MEDS: pantoprazole 40mg Tablet.DR PO SCH (07:33)
[2017-04-13] MEDS: amLODIPine 5mg tablet PO SCH (07:33)
[2017-04-13] MEDS: busPIRone 15mg tablet PO SCH (07:33)
[2017-04-13] MEDS: LACTOBACILLUS RHAMNOSUS GG 15 billion unit sprinkle caps PO SCH (07:34)
[2017-04-13] MEDS: furosemide 40mg/4ml inj IV SCH ×2 (07:37→21:07)
[2017-04-13 10:00] VITALS: BP 126/64
[2017-04-13] MEDS: levoFLOXACIN 500mg tablet PO SCH (11:50)
[2017-04-13] MEDS: HYDROcodone/acetaminophen 10/325mg tab PO PRN ×2 (11:51→22:33)
[2017-04-13 12:26] LABS: PARTIAL THROMBOPLASTIN TIME 54 SECONDS (22-32)
[2017-04-13] MEDS: Protein Shake (high protein) 240ml (8oz) cup PO SCH ×2 (13:11→18:00)
[2017-04-13 17:29] LABS: PARTIAL THROMBOPLASTIN TIME 75 SECONDS (22-32)
[2017-04-13 18:16] VITALS: BP 101/62
[2017-04-13 20:04] LABS: PARTIAL THROMBOPLASTIN TIME 72 SECONDS (22-32)
[2017-04-13] MEDS: atorvastatin 20mg tablet PO SCH (21:06)
[2017-04-13] MEDS: lisinopril 5mg tablet PO SCH (21:06)
[2017-04-13] MEDS: pregabalin 25mg capsule PO SCH (21:06)
[2017-04-13 22:16] VITALS: BP 116/67
[2017-04-14] VITALS (16 sets, daily range): BP systolic 100–153; BP diastolic 55–76
[2017-04-14] MEDS: traMADol 50MG tablet PO PRN (02:30)
[2017-04-14 03:00] LABS: HEMATOCRIT 33.7 % (35.0-45.0); MEAN CORPUSCULAR HEMOGLOBIN 26.7 PG (27.0-31.0); MEAN CORPUSCULAR HGB CONC 32.7 % (33.0-36.5); MEAN CORPUSCULAR VOLUME 81.6 FL (78-98); MEAN PLATELET VOLUME 9.4 FL (7.4-10.4); PLATELET COUNT 195 X10'3 (140-440); RED BLOOD COUNT 4.13 X10'6 (4.20-5.60); RED CELL DISTRIBUTION WIDTH 15.5 % (11.5-14.5); WHITE BLOOD COUNT 7.4 X10'3 (4.5-11.0)
[2017-04-14 03:03] LABS: ALBUMIN 2.5 G/DL (3.4-5.0); ANION GAP 7 (8-16); BLOOD UREA NITROGEN 30 MG/DL (7-18); BUN/CREATININE RATIO 26.3 (6.6-38.0); CALCIUM 9.1 MG/DL (8.5-10.1); CHLORIDE 100 MMOL/L (99-107); CREATININE 1.14 MG/DL (0.40-0.90); GLUCOSE 109 MG/DL (70-104); POTASSIUM 3.9 MMOL/L (3.5-5.1); SODIUM 143 MMOL/L (135-145); TOTAL CARBON DIOXIDE 36.5 MMOL/L (24-32); eGFR 48 ML/MIN
[2017-04-14 03:06] LABS: INR 1.2 INR; PROTHROMBIN TIME 12.6 SECONDS (9.0-12.0)
[2017-04-14] MEDS: heparin 10,000 units/1 ML INJ IV PRN (03:20)
[2017-04-14] MEDS: FEBUXOSTAT PO SCH (08:00)
[2017-04-14] MEDS: amLODIPine 5mg tablet PO SCH (08:00)
[2017-04-14] MEDS: furosemide 40mg/4ml inj IV SCH ×2 (08:00→20:28)
[2017-04-14] MEDS: K and/or MAG REPLACEMENT MC SCH (08:00)
[2017-04-14] MEDS: Protein Shake (high protein) 240ml (8oz) cup PO SCH ×3 (08:02→18:00)
[2017-04-14] MEDS: LACTOBACILLUS RHAMNOSUS GG 15 billion unit sprinkle caps PO SCH (08:09)
[2017-04-14] MEDS: ascorbic acid 500mg tablet PO SCH ×2 (08:10→20:28)
[2017-04-14] MEDS: IRON,CARBONYL (45 MG ELEMENTAL IRON) SR.TABLET PO SCH (08:10)
[2017-04-14] MEDS: docusate sod 100mg capsule PO SCH (08:10)
[2017-04-14] MEDS: pantoprazole 40mg Tablet.DR PO SCH (08:11)
[2017-04-14] MEDS: busPIRone 15mg tablet PO SCH (08:11)
[2017-04-14] MEDS: HYDROcodone/acetaminophen 10/325mg tab PO PRN ×2 (08:47→12:44)
[2017-04-14] MEDS ORDERED: clindamycin 600mg/D5W 50ml 50 ML IV ONE (10:00)
[2017-04-14] MEDS: levoFLOXACIN 500mg tablet PO SCH (12:15)
[2017-04-14] MEDS ORDERED: MIDAZolam 1mg/ml 10ml vial ONE (15:30)
[2017-04-14] MEDS ORDERED: fentaNYL /PF 50mcg/ml 5ml ampule ONE (15:39)
[2017-04-14] MEDS ORDERED: sevoflurane 250ml liquid IH ONE (15:40)
[2017-04-14] MEDS ORDERED: ketorolac trometh. 30mg/ml inj. ONE (16:15)
[2017-04-14] MEDS ORDERED: ROPIVAcaine 0.5% (5mg/ml) 30ml vial ONE (16:15)
[2017-04-14] MEDS ORDERED: vancomycin 1,000mg inj ONE (16:15)
[2017-04-14] MEDS ORDERED: ringers solution, lacted 1,000 ML IV ONE (16:44)
[2017-04-14] MEDS ORDERED: meperidine/PF 25mg/ml syringe IV ONE (16:45)
[2017-04-14] MEDS ORDERED: ondansetron/PF 4mg/2ml inj IV PRN (16:45)
[2017-04-14] MEDS ORDERED: meperidine/PF 25mg/ml syringe IV PRN ×2 (16:45)
[2017-04-14] MEDS ORDERED: hydrALAZINE 20mg/ml inj. IV PRN (16:45)
[2017-04-14] MEDS ORDERED: labetalol 20mg/4ml (5mg/ml) syringe IV PRN (16:45)
[2017-04-14] MEDS ORDERED: LIDOcaine 1%/PF (10mg/ml) 5ml vial ONE (16:52)
[2017-04-14] MEDS ORDERED: LIDOcaine 4% (40 mg/ml) topical solution 50ml ONE (16:52)
[2017-04-14] MEDS ORDERED: phenylephrine 10mg/ml inj IV ONE (16:52)
[2017-04-14] MEDS ORDERED: propofol inj 20 ML IV ONE (16:52)
[2017-04-14] MEDS ORDERED: rocuronium 10mg/ml inj IV ONE (16:53)
[2017-04-14] MEDS ORDERED: neostigmine methylsulfate 1 MG/ML 10ml vial ONE (16:54)
[2017-04-14] MEDS ORDERED: glycopyrrolate 0.2mg/ml inj ONE (16:54)
[2017-04-14] MEDS ORDERED: oxyCODONE IR 5mg (immed. release) tablet PO PRN (17:20)
[2017-04-14] MEDS ORDERED: vancomycin/NS 1 GM ADD-VANTAGE 250 ML IV SCH (20:00)
[2017-04-14] MEDS: pregabalin 25mg capsule PO SCH (20:28)
[2017-04-14] MEDS: atorvastatin 20mg tablet PO SCH (20:28)
[2017-04-14] MEDS: potassium cl 20mEq in 1/2 NS 1,000 ML IV SCH (20:33)
[2017-04-14] MEDS: lisinopril 5mg tablet PO SCH (21:35)
[2017-04-14] MEDS: cefazolin 1gm/NS 100mL 100 ML IV SCH (23:56)
[2017-04-15] MEDS: oxyCODONE IR 5mg (immed. release) tablet PO PRN ×2 (00:08→20:42)
[2017-04-15] MEDS: potassium cl 20mEq in 1/2 NS 1,000 ML IV SCH ×3 (01:20→15:46)
[2017-04-15 02:11] VITALS: BP 122/58
[2017-04-15 02:33] VITALS: BP 122/58
[2017-04-15] MEDS: traMADol 50MG tablet PO PRN (04:50)
[2017-04-15 07:00] VITALS: BP 102/54
[2017-04-15] MEDS: cefazolin 1gm/NS 100mL 100 ML IV SCH (07:32)
[2017-04-15] MEDS: furosemide 40mg/4ml inj IV SCH ×2 (07:32→20:30)
[2017-04-15] MEDS: docusate sod 100mg capsule PO SCH (07:33)
[2017-04-15] MEDS: busPIRone 15mg tablet PO SCH (07:33)
[2017-04-15] MEDS: pantoprazole 40mg Tablet.DR PO SCH (07:33)
[2017-04-15] MEDS: IRON,CARBONYL (45 MG ELEMENTAL IRON) SR.TABLET PO SCH (07:33)
[2017-04-15] MEDS: ascorbic acid 500mg tablet PO SCH ×2 (07:33→20:31)
[2017-04-15] MEDS: LACTOBACILLUS RHAMNOSUS GG 15 billion unit sprinkle caps PO SCH (07:34)
[2017-04-15] MEDS: K and/or MAG REPLACEMENT MC SCH (07:35)
[2017-04-15] MEDS: amLODIPine 5mg tablet PO SCH (07:47)
[2017-04-15 07:49] LABS: HEMATOCRIT 34.7 % (35.0-45.0); HEMOGLOBIN 11.2 g/dl (12.0-16.0); MEAN CORPUSCULAR HEMOGLOBIN 26.6 PG (27.0-31.0); MEAN CORPUSCULAR HGB CONC 32.3 % (33.0-36.5); MEAN CORPUSCULAR VOLUME 82.2 FL (78-98); MEAN PLATELET VOLUME 9.4 FL (7.4-10.4); PLATELET COUNT 255 X10'3 (140-440); RED BLOOD COUNT 4.22 X10'6 (4.20-5.60); RED CELL DISTRIBUTION WIDTH 15.5 % (11.5-14.5); WHITE BLOOD COUNT 10.8 X10'3 (4.5-11.0)
[2017-04-15 08:07] LABS: ALBUMIN 2.8 G/DL (3.4-5.0); ANION GAP 7 (8-16); BLOOD UREA NITROGEN 28 MG/DL (7-18); BUN/CREATININE RATIO 22.6 (6.6-38.0); CALCIUM 8.8 MG/DL (8.5-10.1); CHLORIDE 101 MMOL/L (99-107); CREATININE 1.24 MG/DL (0.40-0.90); GLUCOSE 107 MG/DL (70-104); MAGNESIUM 1.9 MG/DL (1.5-2.4); POTASSIUM 4.1 MMOL/L (3.5-5.1); SODIUM 141 MMOL/L (135-145); TOTAL CARBON DIOXIDE 33.3 MMOL/L (24-32); eGFR 43 ML/MIN
[2017-04-15 08:14] LABS: INR 1.2 INR
[2017-04-15] MEDS: Protein Shake (high protein) 240ml (8oz) cup PO SCH ×3 (08:29→18:21)
[2017-04-15 11:00] VITALS: BP 109/54
[2017-04-15] MEDS: levoFLOXACIN 500mg tablet PO SCH (12:03)
[2017-04-15 18:00] VITALS: BP 120/78
[2017-04-15] MEDS: lisinopril 5mg tablet PO SCH (20:30)
[2017-04-15] MEDS: pregabalin 25mg capsule PO SCH (20:30)
[2017-04-15] MEDS: atorvastatin 20mg tablet PO SCH (20:31)
[2017-04-15] MEDS ORDERED: warfarin 2.5mg tablet PO ONE (21:00)
[2017-04-15 22:00] VITALS: BP 121/63
[2017-04-16] MEDS: potassium cl 20mEq in 1/2 NS 1,000 ML IV SCH ×2 (01:21→09:20)
[2017-04-16 05:00] VITALS: BP 127/64
[2017-04-16] MEDS: magnesium hydroxide 30ml (MOM) UD suspension PO PRN (05:15)
[2017-04-16 06:35] LABS: BASOPHILS % (AUTO) 0.5 % (0-1); EOSINOPHILS % (AUTO) 0.5 % (0-6); HEMATOCRIT 30.9 % (35.0-45.0); HEMOGLOBIN 9.8 g/dl (12.0-16.0); LYMPHOCYTES # (AUTO) 1.5 X10'3 (1.1-4.8); LYMPHOCYTES % (AUTO) 17.6 % (21-51); MEAN CORPUSCULAR HEMOGLOBIN 26.5 PG (27.0-31.0); MEAN CORPUSCULAR HGB CONC 31.8 % (33.0-36.5); MEAN CORPUSCULAR VOLUME 83.2 FL (78-98); MEAN PLATELET VOLUME 8.9 FL (7.4-10.4); MONOCYTES # (AUTO) 1.1 X10'3 (0-0.9); MONOCYTES % (AUTO) 13.4 % (2-12); NEUTROPHILS # (AUTO) 5.8 X10'3 (1.8-7.7); PLATELET COUNT 190 X10'3 (140-440); RED BLOOD COUNT 3.71 X10'6 (4.20-5.60); RED CELL DISTRIBUTION WIDTH 15.2 % (11.5-14.5); WHITE BLOOD COUNT 8.5 X10'3 (4.5-11.0)
[2017-04-16 06:45] LABS: INR 1.2 INR; PROTHROMBIN TIME 12.2 SECONDS (9.0-12.0)
[2017-04-16 06:53] LABS: ALANINE AMINOTRANSFERASE 22 U/L (12-78); ALBUMIN 2.3 G/DL (3.4-5.0); ALBUMIN/GLOBULIN RATIO 0.6 (1.1-1.5); ALKALINE PHOSPHATASE 132 IU/L (46-116); ANION GAP 2 (8-16); ASPARTATE AMINO TRANSFERASE 31 U/L (10-37); BILIRUBIN,TOTAL 0.8 MG/DL (0.1-1.0); BLOOD UREA NITROGEN 28 MG/DL (7-18); BUN/CREATININE RATIO 26.4 (6.6-38.0); CALCIUM 8.8 MG/DL (8.5-10.1); CHLORIDE 103 MMOL/L (99-107); CREATININE 1.06 MG/DL (0.40-0.90); GLUCOSE 111 MG/DL (70-104); POTASSIUM 4.2 MMOL/L (3.5-5.1); SODIUM 140 MMOL/L (135-145); TOTAL CARBON DIOXIDE 35.2 MMOL/L (24-32); TOTAL PROTEIN 6.2 G/DL (6.4-8.2); eGFR 52 ML/MIN
[2017-04-16] MEDS: K and/or MAG REPLACEMENT MC SCH (08:00)
[2017-04-16] MEDS: amLODIPine 5mg tablet PO SCH (08:15)
[2017-04-16] MEDS: pantoprazole 40mg Tablet.DR PO SCH (08:15)
[2017-04-16] MEDS: busPIRone 15mg tablet PO SCH (08:15)
[2017-04-16] MEDS: furosemide 40mg/4ml inj IV SCH (08:15)
[2017-04-16] MEDS: LACTOBACILLUS RHAMNOSUS GG 15 billion unit sprinkle caps PO SCH (08:15)
[2017-04-16] MEDS: Protein Shake (high protein) 240ml (8oz) cup PO SCH ×2 (08:15→13:42)
[2017-04-16] MEDS: IRON,CARBONYL (45 MG ELEMENTAL IRON) SR.TABLET PO SCH (08:15)
[2017-04-16] MEDS: docusate sod 100mg capsule PO SCH (08:16)
[2017-04-16] MEDS: ascorbic acid 500mg tablet PO SCH (08:16)
[2017-04-16 10:07] VITALS: BP 95/44
[2017-04-16 10:08] VITALS: BP 96/53
[2017-04-16] MEDS: levoFLOXACIN 500mg tablet PO SCH (11:42)
[2017-04-16] MEDS ORDERED: warfarin 4mg tablet PO ONE (21:00)
== END 2017-04-16 17:15 | DRG 493 ==
LOC: ER 12:18 → ED HOLD 14:11 → ORTHO 4S 14:41
PROVIDERS: ADMIT Internal Medicine; ATTEND Internal Medicine
PROC: BP1AZZZ Fluoroscopy of Right Humerus (ICD-10-PCS; 2017-04-14)
PROC: 0PSF04Z Reposition Right Humeral Shaft with Internal Fixation Device, Open Approach (ICD-10-PCS; principal; 2017-04-14 15:40)
DX: S42.221A 2-part displaced fracture of surgical neck of right humerus, initial encounter for closed fracture (principal); N17.9 Acute kidney failure, unspecified; D68.9 Coagulation defect, unspecified; I69.351 Hemiplegia and hemiparesis following cerebral infarction affecting right dominant side; E44.1 Mild protein-calorie malnutrition; Z68.43 Body mass index [BMI] 50.0-59.9, adult; N39.0 Urinary tract infection, site not specified; E66.01 Morbid (severe) obesity due to excess calories; E86.0 Dehydration; W01.0XXA Fall on same level from slipping, tripping and stumbling without subsequent striking against object, initial encounter; G47.33 Obstructive sleep apnea (adult) (pediatric); F41.9 Anxiety disorder, unspecified; M19.90 Unspecified osteoarthritis, unspecified site; E03.9 Hypothyroidism, unspecified; F45.8 Other somatoform disorders; D50.9 Iron deficiency anemia, unspecified; B96.4 Proteus (mirabilis) (morganii) as the cause of diseases classified elsewhere; E11.9 Type 2 diabetes mellitus without complications; F32.9 Major depressive disorder, single episode, unspecified; I10 Essential (primary) hypertension; I25.10 Atherosclerotic heart disease of native coronary artery without angina pectoris; R09.02 Hypoxemia; Z90.710 Acquired absence of both cervix and uterus; Z95.2 Presence of prosthetic heart valve; Z88.5 Allergy status to narcotic agent; Z88.0 Allergy status to penicillin; Z88.2 Allergy status to sulfonamides; Z88.8 Allergy status to other drugs, medicaments and biological substances; Z91.018 Allergy to other foods; Z79.899 Other long term (current) drug therapy; Z79.01 Long term (current) use of anticoagulants; Z79.82 Long term (current) use of aspirin; Z87.442 Personal history of urinary calculi; Y93.89 Activity, other specified; Y92.098 Other place in other non-institutional residence as the place of occurrence of the external cause; Y99.8 Other external cause status
CPT/HCPCS: 36415; 36600; 71010; 73030; 73200; 76001; 80048; 80053; 81001; 82803; 83735; 84484; 85018; 85025; 85027; 85610; 85730; 87070; 87077; 87088; 87186; 93005; 93306; 94760; 96374; 97110; 97116; 97162; 97530; 99285; A4315; A4565; A6212; A6257; A7000; C1713; J0690; J1644; J1650; J1885; J1940; J1956; J2001; J2250; J2270; J2370; J2704; J2710; J2795; J3010; J3370; J3430; J3490; J7030; J7070; J7120

== ENCOUNTER 2023-06-25 17:24 | Emergency (ER) | payer MEDICARE, BC ==
[~2023-06-25] VITALS: Ht 142.2 cm; Wt 94.1 kg
[~2023-06-25 17:24] MED LIST changes: +AMLO2.5T2 PO; -BUS15T PO; +BUSP5TAB3 PO; +CHOL400T14 PO; +HYDR12.5 PO; +LEVO25TA2 PO; -LEVO500P5 IV; +LYR25C PO; +MAGN400C PO; +METO-292 PO; +METO-539 PO; -MIDO2.5T14 PO; -VANC1VIA21 IV; +VANC1VIA38 IV
[2023-06-25 17:59] VITALS: BP 133/58; PULSE 58; RESP 16; TEMP 98; O2SAT 99
[2023-06-25 18:58] LABS: BASOPHILS % (AUTO) 0.5 % (0-1); EOSINOPHILS # (AUTO) 0.1 X10'3 (0-0.9); EOSINOPHILS % (AUTO) 0.9 % (0-6); HEMATOCRIT 30.4 % (35.0-45.0); HEMOGLOBIN 9.8 g/dl (12.0-16.0); LYMPHOCYTES # (AUTO) 1.3 X10'3 (1.1-4.8); LYMPHOCYTES % (AUTO) 20.4 % (21-51); MEAN CORPUSCULAR HEMOGLOBIN 29.1 PG (27.0-31.0); MEAN CORPUSCULAR HGB CONC 32.1 g/dL (33.0-36.5); MEAN CORPUSCULAR VOLUME 90.7 FL (78-98); MEAN PLATELET VOLUME 9.2 FL (7.4-10.4); MONOCYTES # (AUTO) 0.5 X10'3 (0-0.9); MONOCYTES % (AUTO) 7.7 % (2-12); NEUTROPHILS # (AUTO) 4.6 X10'3 (1.8-7.7); NEUTROPHILS % (AUTO) 70.5 % (42-75); PLATELET COUNT 198 X10'3 (140-440); RED BLOOD COUNT 3.35 X10'6 (4.20-5.60); WHITE BLOOD COUNT 6.6 X10'3 (4.5-11.0)
[2023-06-25 19:22] LABS: ALBUMIN 3.3 G/DL (3.4-5.0); ANION GAP 9 (8-16); BLOOD UREA NITROGEN 45 MG/DL (7-18); BUN/CREATININE RATIO 34.4 (10.0-20.0); CALCIUM 9.7 MG/DL (8.5-10.1); CHLORIDE 111 MMOL/L (99-107); CREATININE 1.31 MG/DL (0.40-0.90); GLUCOSE 93 MG/DL (70-104); POTASSIUM 5.3 MMOL/L (3.5-5.1); PRO BRAIN NATRIURETIC PEPTIDE 2527 PG/ML (0-125); SODIUM 143 MMOL/L (135-145); eCRCL 22 ML/MIN; eGFR 40 ML/MIN
== END 2023-06-26 02:29 | disposition left against medical advice (07) ==
LOC: ER 17:25
DX: R07.89 Other chest pain (principal); M25.512 Pain in left shoulder; R22.43 Localized swelling, mass and lump, lower limb, bilateral; Z53.21 Procedure and treatment not carried out due to patient leaving prior to being seen by health care provider
CPT/HCPCS: 36415; 71045; 80048; 83880; 84484; 85025; 93005; 99281